=== PATIENT | female | born 1985 | race Caucasian/White ===

== ENCOUNTER 2018-04-07 19:42 | Observation (INO) ==
--- NOTE | 2018-04-07 19:52 | Emergency Department Note ---
Disposition Clinical Impression: Seizure Disposition: Admitted As Inpatient Condition: Good Referrals: Khris Miller MD [Primary Care Provider] - Forms: ED Satisfaction Letter General Adult HPI - General Chief complaint: ED Seizure Stated complaint: seizure, unresponsive Time Seen by Provider: 04/07/18 19:51 Source: patient Mode of arrival: private vehicle Limitations: altered mental status Nursing Notes Reviewed: Yes Vital Signs Reviewed: Yes - History of Present Illness HPI Narrative: Patient presents to the emergency department via private vehicle. Was not feeling well at work. Started to have seizure-like activity in the car. Was loaded onto the stretcher and brought to the emergency department. Patient was not responding to painful stimulus. Patient was not having active tonic-clonic movements. Patient did have eye fluttering and her pupils were equal and reactive. The patient vital signs were obtained and stable. Patient then began to wake up. The patient does have a cardiac history of rapid heart rate but no other specifics are able to be given by mother. She has a history of seizures but unknown what medications she takes other than Lyrica. The patient does have a history of opiate use. Patient will continue to be monitored. Baseline chemistries will be obtained. We will consult neurology. - Related Data Home Medications Medication Instructions Recorded Confirmed DULoxetine [Cymbalta] 20 mg PO DAILY 04/07/18 04/07/18 Diltiazem CD (24hr) [Cardizem CD] 120 mg PO DAILY 04/07/18 04/07/18 Estrogens, Conjugated [Premarin] 0.45 mg PO DAILY 04/07/18 04/07/18 Ibuprofen [Motrin] 800 mg PO Q8HR 04/07/18 04/07/18 Lisinopril [Zestril] 10 mg PO DAILY 04/07/18 04/07/18 Medroxyprogesterone Acetate 50 mg PO DAILY 04/07/18 04/07/18 [Provera] Pregabalin [Lyrica] 100 mg PO BID 04/07/18 04/07/18 Allergies Allergy/AdvReac Type Severity Reaction Status Date / Time levofloxacin [From Levaquin] Allergy Hives Verified 03/29/18 21:44 methocarbamol Allergy Difficulty Verified 03/29/18 21:44 Breathing tramadol Allergy Seizure Verified 03/29/18 21:44 Limitations: ROS unobtainable due to patients medical condition Past Medical History - Past Medical History Medical history: Reports: fibromyalgia, hypertension, seizures, other Psychiatric history: Reports: 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 - Social History Smoking Status: Current every day smoker Smokeless Tobacco Status: No Alcohol use: Reports: rarely Drug use: Reports: none Physical Exam General: Nonresponsive Head: Normocephalic Atraumatic Eyes: PERRL, eyes fluttering upwards ENT: Airway patent, no stridor Neck: supple, no meningismus Chest: Lungs clear to auscultation bilateral Cardiac: Regular rate and rhythm, no murmurs, rubs or gallops Abdomen: soft, nontender, nondistended; no guarding, rebound, or tenderness to percussion Musculoskeletal: Calves symmetric, nontender, no palpable cord Skin: No rash, normal skin tone; no evidence of track lr Neuro: No tonic-clonic activity Course - Reevaluation(s) Reevaluation #1: Patient started to wake and did respond to her mother's voice. She was able to mouth her name. Patient then began having arching of her neck as well as eye fluttering again. Patient was given 1 mg of Ativan with improvement. Patient again the able to speak softly. Patient did awaken one point told the nurses were to get the best IV. - Consultations Consultation #1: Discussed with Dr. Love after viewing her most previous progress note. He has concern for pseudoseizures. Recommends ammonia capsule and observation with repeat callback about patients clinical status. Consultation #2: Discussed with Dr. Love. Patient is awakening but is still drowsy. Possible Ativan versus other. Patient has not had any further seizures. At this point the patient will be placed on Depakote 800 mg IV and then received 500 twice a day. They will consult tomorrow. Consultation #3: Discussed with hospitalist. Accepted for admission. Vital Signs Temperature 98.7 F 04/07/18 19:43 Pulse Rate 76 04/07/18 19:43 Respiratory Rate 12 04/07/18 19:43 Blood Pressure 152/92 04/07/18 19:43 O2 Sat by Pulse Oximetry 100 04/07/18 19:43 Temperature 98.7 F 04/07/18 19:43 Pulse Rate 74 04/07/18 22:01 Respiratory Rate 16 04/07/18 22:01 Blood Pressure 112/70 04/07/18 22:01 O2 Sat by Pulse Oximetry 98 04/07/18 22:01 Oxygen Delivery Oxygen Delivery Room Air Medical Decision Making - Medical Records Medical records reviewed: Yes I reviewed the patient's medical records. - Lab Data Lab results reviewed: Yes I reviewed the patient's lab results. Result diagrams: 04/07/18 19:48 04/07/18 19:48 Lab Results 04/07/18 04/07/18 04/07/18 Range/Units 19:48 19:48 19:48 WBC 10.8 (4.3-11.1) K/mcL RBC 4.44 (3.82-4.97) M/mcL Hgb 13.5 (11.5-15.4) g/dL Hct 40.2 (35.3-44.9) % MCV 90.5 (83.0-100.0) fL MCH 30.4 (28.0-33.3) pg MCHC 33.6 (31.6-35.5) g/dL RDW 11.9 (11.5-14.5) % Plt Count 208 (140-400) K/mcL MPV 10.8 (9.4-12.4) fL Immature Gran % 0.6 (0-4) % Seg Neutrophils % 78.2 % Lymphocytes % 14.0 % Monocytes % 5.9 % Eosinophils % 0.9 % Basophils % 0.4 % Neutrophils # 8.4 (1.6-8.9) K/mcL Lymphocytes # 1.5 (0.6-4.6) K/mcL Monocytes # 0.6 (0.0-1.3) K/mcL Eosinophils # 0.1 (0.0-0.6) K/mcL Basophils # 0.0 (0.0-0.2) K/mcL Sodium 140 (136-145) mEq/L Potassium 3.7 (3.5-5.1) mEq/L Chloride 112 H (98-107) mEq/L Carbon Dioxide 23 (23-29) mEq/L BUN 9 (6-20) mg/dL Creatinine 0.81 (0.60-1.20) mg/dL Est GFR ( Amer) > 60 (> 60) Est GFR (Non-Af Amer) > 60 (> 60) BUN/Creatinine Ratio 11 (6-26) Glucose 153 H (70-105) mg/dL POC Glucose (70-99) mg/dL Calculated Osmolality 292 (280-300) Calcium 7.9 L (8.6-10.3) mg/dL Phosphorus 3.4 (2.7-4.5) mg/dL Magnesium 1.9 (1.6-2.6) mg/dL Total Bilirubin 0.3 (0.3-1.0) mg/dL AST 23 (13-39) Units/L ALT 34 (7-52) Units/L Alkaline Phosphatase 60 (34-104) Units/L Serum Total Protein 5.6 L (6.4-8.9) g/dL Albumin 4.0 (3.5-5.7) g/dL Globulin 1.6 L (2.4-3.5) g/dL Albumin/Globulin Ratio 2.5 H (1.1-2.2) Serum , Qual (Negative) Urine Color (Yellow) Urine Clarity (Clear) Urine pH (5.0-8.0) pH Units Ur Specific [place] (1.010-1.025) Urine Protein (Neg-Trace) mg/dL Urine Glucose (UA) (Normal) mg/dL Urine Ketones (Negative) mg/dL Urine Blood (Negative) Urine Nitrite (Negative) Urine Bilirubin (Negative) Urine Urobilinogen (Normal) mg/dL Ur Leukocyte Esterase (Negative) Urine Opiates Screen (Abmcjq=506) ng/mL Ur Barbiturates Screen (Xqrjmc=887) ng/mL Valproic Acid < 4 L (50-100) mcg/mL Ur Phencyclidine Scrn (Cutoff=25) ng/mL Ur Amphetamines Screen (Iururn=9337) ng/mL U Benzodiazepines Scrn (Epmbxz=202) ng/mL Urine Cocaine Screen (Cutoff= 300) ng/mL U Marijuana (THC) Screen (Cutoff = 50) ng/mL 04/07/18 04/07/18 04/07/18 Range/Units 20:20 20:24 21:32 WBC (4.3-11.1) K/mcL RBC (3.82-4.97) M/mcL Hgb (11.5-15.4) g/dL Hct (35.3-44.9) % MCV (83.0-100.0) fL MCH (28.0-33.3) pg MCHC (31.6-35.5) g/dL RDW (11.5-14.5) % Plt Count (140-400) K/mcL MPV (9.4-12.4) fL Immature Gran % (0-4) % Seg Neutrophils % % Lymphocytes % % Monocytes % % Eosinophils % % Basophils % % Neutrophils # (1.6-8.9) K/mcL Lymphocytes # (0.6-4.6) K/mcL Monocytes # (0.0-1.3) K/mcL Eosinophils # (0.0-0.6) K/mcL Basophils # (0.0-0.2) K/mcL Sodium (136-145) mEq/L Potassium (3.5-5.1) mEq/L Chloride (98-107) mEq/L Carbon Dioxide (23-29) mEq/L BUN (6-20) mg/dL Creatinine (0.60-1.20) mg/dL Est GFR ( Amer) (> 60) Est GFR (Non-Af Amer) (> 60) BUN/Creatinine Ratio (6-26) Glucose (70-105) mg/dL POC Glucose 168 H (70-99) mg/dL Calculated Osmolality (280-300) Calcium (8.6-10.3) mg/dL Phosphorus (2.7-4.5) mg/dL Magnesium (1.6-2.6) mg/dL Total Bilirubin (0.3-1.0) mg/dL AST (13-39) Units/L ALT (7-52) Units/L Alkaline Phosphatase (34-104) Units/L Serum Total Protein (6.4-8.9) g/dL Albumin (3.5-5.7) g/dL Globulin (2.4-3.5) g/dL Albumin/Globulin Ratio (1.1-2.2) Serum , Qual Negative (Negative) Urine Color Yellow (Yellow) Urine Clarity Clear (Clear) Urine pH 6.5 (5.0-8.0) pH Units Ur Specific [place] 1.015 (1.010-1.025) Urine Protein Negative (Neg-Trace) mg/dL Urine Glucose (UA) Normal (Normal) mg/dL Urine Ketones Negative (Negative) mg/dL Urine Blood Negative (Negative) Urine Nitrite Negative (Negative) Urine Bilirubin Negative (Negative) Urine Urobilinogen Normal (Normal) mg/dL Ur Leukocyte Esterase Negative (Negative) Urine Opiates Screen (Sqxweq=712) ng/mL Ur Barbiturates Screen (Mxyfat=244) ng/mL Valproic Acid (50-100) mcg/mL Ur Phencyclidine Scrn (Cutoff=25) ng/mL Ur Amphetamines Screen (Hgrxnq=7786) ng/mL U Benzodiazepines Scrn (Vuimuo=690) ng/mL Urine Cocaine Screen (Cutoff= 300) ng/mL U Marijuana (THC) Screen (Cutoff = 50) ng/mL 04/07/18 Range/Units 21:32 WBC (4.3-11.1) K/mcL RBC (3.82-4.97) M/mcL Hgb (11.5-15.4) g/dL Hct (35.3-44.9) % MCV (83.0-100.0) fL MCH (28.0-33.3) pg MCHC (31.6-35.5) g/dL RDW (11.5-14.5) % Plt Count (140-400) K/mcL MPV (9.4-12.4) fL Immature Gran % (0-4) % Seg Neutrophils % % Lymphocytes % % Monocytes % % Eosinophils % % Basophils % % Neutrophils # (1.6-8.9) K/mcL Lymphocytes # (0.6-4.6) K/mcL Monocytes # (0.0-1.3) K/mcL Eosinophils # (0.0-0.6) K/mcL Basophils # (0.0-0.2) K/mcL Sodium (136-145) mEq/L Potassium (3.5-5.1) mEq/L Chloride (98-107) mEq/L Carbon Dioxide (23-29) mEq/L BUN (6-20) mg/dL Creatinine (0.60-1.20) mg/dL Est GFR ( Amer) (> 60) Est GFR (Non-Af Amer) (> 60) BUN/Creatinine Ratio (6-26) Glucose (70-105) mg/dL POC Glucose (70-99) mg/dL Calculated Osmolality (280-300) Calcium (8.6-10.3) mg/dL Phosphorus (2.7-4.5) mg/dL Magnesium (1.6-2.6) mg/dL Total Bilirubin (0.3-1.0) mg/dL AST (13-39) Units/L ALT (7-52) Units/L Alkaline Phosphatase (34-104) Units/L Serum Total Protein (6.4-8.9) g/dL Albumin (3.5-5.7) g/dL Globulin (2.4-3.5) g/dL Albumin/Globulin Ratio (1.1-2.2) Serum , Qual (Negative) Urine Color (Yellow) Urine Clarity (Clear) Urine pH (5.0-8.0) pH Units Ur Specific [place] (1.010-1.025) Urine Protein (Neg-Trace) mg/dL Urine Glucose (UA) (Normal) mg/dL Urine Ketones (Negative) mg/dL Urine Blood (Negative) Urine Nitrite (Negative) Urine Bilirubin (Negative) Urine Urobilinogen (Normal) mg/dL Ur Leukocyte Esterase (Negative) Urine Opiates Screen Negative (Uumxjh=554) ng/mL Ur Barbiturates Screen Negative (Ajkrce=338) ng/mL Valproic Acid (50-100) mcg/mL Ur Phencyclidine Scrn Negative (Cutoff=25) ng/mL Ur Amphetamines Screen Negative (Floyni=0636) ng/mL U Benzodiazepines Scrn Negative (Pnlsle=706) ng/mL Urine Cocaine Screen Negative (Cutoff= 300) ng/mL U Marijuana (THC) Screen Negative (Cutoff = 50) ng/mL - Radiology Data Radiology results reviewed: Yes I reviewed the patient's radiology results. - EKG Data EKG #1 EKG attestation: Yes I reviewed and interpreted this EKG. EKG results narrative: EKG shows sinus rhythm with ventricular rate of 75. HI interval 180. QRS 105. QTC 431. No significant ST elevations or depressions. No previous EKG for comparison.
[2018-04-07] MEDS ORDERED: 0.9 % Sodium Chloride 1,000 ML IVC ONE (19:54)
[2018-04-07] MEDS ORDERED: *HR* LORazepam 2 MG/ML VIAL ONE (19:58)
[2018-04-07] MEDS ORDERED: *HR* LORazepam 2 MG/ML VIAL IVP ONE (20:06)
[2018-04-07 20:12] LABS: Basophils % 0.4 %; Eosinophils # 0.1 K/mcL (0.0-0.6); Eosinophils % 0.9 %; Hematocrit 40.2 % (35.3-44.9); Hemoglobin 13.5 g/dL (11.5-15.4); Immature Granulocytes % 0.6 % (0-4); Lymphocytes # 1.5 K/mcL (0.6-4.6); Mean Corpuscular HGB Conc 33.6 g/dL (31.6-35.5); Mean Corpuscular Hemoglobin 30.4 pg (28.0-33.3); Mean Corpuscular Volume 90.5 fL (83.0-100.0); Mean Platelet Volume 10.8 fL (9.4-12.4); Monocytes # 0.6 K/mcL (0.0-1.3); Monocytes % 5.9 %; Neutrophils # 8.4 K/mcL (1.6-8.9); Platelet Count 208 K/mcL (140-400); Red Blood Count 4.44 M/mcL (3.82-4.97); Red Cell Distribution Width 11.9 % (11.5-14.5); Segmented Neutrophils % 78.2 %
[2018-04-07] MEDS ORDERED: Ammonia Inhalant AMPUL IH ONE (20:14)
[2018-04-07 20:37] LABS: Alanine Aminotransferase 34 Units/L (7-52); Albumin/Globulin Ratio 2.5 (1.1-2.2); Alkaline Phosphatase 60 Units/L (34-104); Aspartate Amino Transferase 23 Units/L (13-39); BUN/Creatinine Ratio 11 (6-26); Bilirubin,Total 0.3 mg/dL (0.3-1.0); Blood Urea Nitrogen 9 mg/dL (6-20); Calcium 7.9 mg/dL (8.6-10.3); Carbon Dioxide 23 mEq/L (23-29); Chloride 112 mEq/L (98-107); Globulin 1.6 g/dL (2.4-3.5); Glucose 153 mg/dL (70-105); Magnesium 1.9 mg/dL (1.6-2.6); Osmolality,Calculated 292 (280-300); Phosphorous 3.4 mg/dL (2.7-4.5); Potassium 3.7 mEq/L (3.5-5.1); Sodium 140 mEq/L (136-145); Total Protein 5.6 g/dL (6.4-8.9); eGFR For African Americans > 60 (> 60); eGFR For Non-African Americans > 60 (> 60)
[2018-04-07] MEDS ORDERED: Valproic Acid INJ 800 MG in 0.9 % Sodium Chloride 100 ML IVPB ONE (21:22)
[2018-04-07 21:54] LABS: Bilirubin,Urine Negative (Negative); Blood,Urine Negative (Negative); Clarity,Urine Clear (Clear); Color,Urine Yellow (Yellow); Glucose,Urine (UA) Normal (Normal); Ketones,Urine Negative (Negative); Leukocyte Esterase,Urine Negative (Negative); Nitrite,Urine Negative (Negative); PH,Urine 6.5 pH Units (5.0-8.0); Protein,Urine Negative (Neg-Trace); Specific Gravity,Urine 1.015 (1.010-1.025); Urobilinogen,Urine Normal (Normal)
[2018-04-07 22:03] LABS: Amphetamine Screen,Urine Negative ng/mL (Cutoff=1000); Barbiturate Screen,Urine Negative ng/mL (Cutoff=200); Benzodiazepines Screen,Urine Negative ng/mL (Cutoff=200); Cannabinoid Screen,Urine Negative ng/mL (Cutoff = 50); Cocaine Screen,Urine Negative ng/mL (Cutoff= 300); Opiate Screen,Urine Negative ng/mL (Cutoff=300); Phencyclidine Screen,Urine Negative ng/mL (Cutoff=25)
--- NOTE | 2018-04-07 22:06 | Emergency Department Note ---
Disposition Clinical Impression: Seizure Disposition: Admitted As Inpatient Condition: Good General Adult HPI - General Chief complaint: ED Seizure Stated complaint: seizure, unresponsive Time Seen by Provider: 04/07/18 19:51 Source: patient Mode of arrival: private vehicle Limitations: altered mental status Nursing Notes Reviewed: Yes Vital Signs Reviewed: Yes - History of Present Illness Pain Scale: 0 - Related Data Home Medications Medication Instructions Recorded Confirmed DULoxetine [Cymbalta] 20 mg PO DAILY 04/07/18 04/07/18 Diltiazem CD (24hr) [Cardizem CD] 120 mg PO DAILY 04/07/18 04/07/18 Estrogens, Conjugated [Premarin] 0.45 mg PO DAILY 04/07/18 04/07/18 Ibuprofen [Motrin] 800 mg PO Q8HR 04/07/18 04/07/18 Lisinopril [Zestril] 10 mg PO DAILY 04/07/18 04/07/18 Medroxyprogesterone Acetate 50 mg PO DAILY 04/07/18 04/07/18 [Provera] Pregabalin [Lyrica] 100 mg PO BID 04/07/18 04/07/18 Allergies Allergy/AdvReac Type Severity Reaction Status Date / Time levofloxacin [From Levaquin] Allergy Hives Verified 03/29/18 21:44 methocarbamol Allergy Difficulty Verified 03/29/18 21:44 Breathing tramadol Allergy Seizure Verified 03/29/18 21:44 Past Medical History - Past Medical History Medical history: Reports: fibromyalgia, hypertension, seizures, other 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 - Social History Smoking Status: Current every day smoker Smokeless Tobacco Status: No Alcohol use: Reports: rarely Drug use: Reports: none Physical Exam - General Limitations: altered mental status General appearance: lethargic Course Vital Signs Temperature 98.7 F 04/07/18 19:43 Pulse Rate 76 04/07/18 19:43 Respiratory Rate 12 04/07/18 19:43 Blood Pressure 152/92 04/07/18 19:43 O2 Sat by Pulse Oximetry 100 04/07/18 19:43 Temperature 98.5 F 04/07/18 23:47 Pulse Rate 72 04/07/18 23:47 Respiratory Rate 16 04/07/18 23:47 Blood Pressure 109/75 04/07/18 23:47 O2 Sat by Pulse Oximetry 97 04/07/18 23:47 Oxygen Delivery Oxygen Delivery Room Air Medical Decision Making - Lab Data Result diagrams: 04/07/18 19:48 04/07/18 19:48 Lab Results 04/07/18 04/07/18 04/07/18 Range/Units 19:48 19:48 19:48 WBC 10.8 (4.3-11.1) K/mcL RBC 4.44 (3.82-4.97) M/mcL Hgb 13.5 (11.5-15.4) g/dL Hct 40.2 (35.3-44.9) % MCV 90.5 (83.0-100.0) fL MCH 30.4 (28.0-33.3) pg MCHC 33.6 (31.6-35.5) g/dL RDW 11.9 (11.5-14.5) % Plt Count 208 (140-400) K/mcL MPV 10.8 (9.4-12.4) fL Immature Gran % 0.6 (0-4) % Seg Neutrophils % 78.2 % Lymphocytes % 14.0 % Monocytes % 5.9 % Eosinophils % 0.9 % Basophils % 0.4 % Neutrophils # 8.4 (1.6-8.9) K/mcL Lymphocytes # 1.5 (0.6-4.6) K/mcL Monocytes # 0.6 (0.0-1.3) K/mcL Eosinophils # 0.1 (0.0-0.6) K/mcL Basophils # 0.0 (0.0-0.2) K/mcL Sodium 140 (136-145) mEq/L Potassium 3.7 (3.5-5.1) mEq/L Chloride 112 H (98-107) mEq/L Carbon Dioxide 23 (23-29) mEq/L BUN 9 (6-20) mg/dL Creatinine 0.81 (0.60-1.20) mg/dL Est GFR ( Amer) > 60 (> 60) Est GFR (Non-Af Amer) > 60 (> 60) BUN/Creatinine Ratio 11 (6-26) Glucose 153 H (70-105) mg/dL POC Glucose (70-99) mg/dL Calculated Osmolality 292 (280-300) Calcium 7.9 L (8.6-10.3) mg/dL Phosphorus 3.4 (2.7-4.5) mg/dL Magnesium 1.9 (1.6-2.6) mg/dL Total Bilirubin 0.3 (0.3-1.0) mg/dL AST 23 (13-39) Units/L ALT 34 (7-52) Units/L Alkaline Phosphatase 60 (34-104) Units/L Serum Total Protein 5.6 L (6.4-8.9) g/dL Albumin 4.0 (3.5-5.7) g/dL Globulin 1.6 L (2.4-3.5) g/dL Albumin/Globulin Ratio 2.5 H (1.1-2.2) Serum , Qual (Negative) Urine Color (Yellow) Urine Clarity (Clear) Urine pH (5.0-8.0) pH Units Ur Specific [place] (1.010-1.025) Urine Protein (Neg-Trace) mg/dL Urine Glucose (UA) (Normal) mg/dL Urine Ketones (Negative) mg/dL Urine Blood (Negative) Urine Nitrite (Negative) Urine Bilirubin (Negative) Urine Urobilinogen (Normal) mg/dL Ur Leukocyte Esterase (Negative) Urine Opiates Screen (Hwudtb=250) ng/mL Ur Barbiturates Screen (Iuahyu=721) ng/mL Valproic Acid < 4 L (50-100) mcg/mL Ur Phencyclidine Scrn (Cutoff=25) ng/mL Ur Amphetamines Screen (Zutvkj=7587) ng/mL U Benzodiazepines Scrn (Nonkou=318) ng/mL Urine Cocaine Screen (Cutoff= 300) ng/mL U Marijuana (THC) Screen (Cutoff = 50) ng/mL 04/07/18 04/07/18 04/07/18 Range/Units 20:20 20:24 21:32 WBC (4.3-11.1) K/mcL RBC (3.82-4.97) M/mcL Hgb (11.5-15.4) g/dL Hct (35.3-44.9) % MCV (83.0-100.0) fL MCH (28.0-33.3) pg MCHC (31.6-35.5) g/dL RDW (11.5-14.5) % Plt Count (140-400) K/mcL MPV (9.4-12.4) fL Immature Gran % (0-4) % Seg Neutrophils % % Lymphocytes % % Monocytes % % Eosinophils % % Basophils % % Neutrophils # (1.6-8.9) K/mcL Lymphocytes # (0.6-4.6) K/mcL Monocytes # (0.0-1.3) K/mcL Eosinophils # (0.0-0.6) K/mcL Basophils # (0.0-0.2) K/mcL Sodium (136-145) mEq/L Potassium (3.5-5.1) mEq/L Chloride (98-107) mEq/L Carbon Dioxide (23-29) mEq/L BUN (6-20) mg/dL Creatinine (0.60-1.20) mg/dL Est GFR ( Amer) (> 60) Est GFR (Non-Af Amer) (> 60) BUN/Creatinine Ratio (6-26) Glucose (70-105) mg/dL POC Glucose 168 H (70-99) mg/dL Calculated Osmolality (280-300) Calcium (8.6-10.3) mg/dL Phosphorus (2.7-4.5) mg/dL Magnesium (1.6-2.6) mg/dL Total Bilirubin (0.3-1.0) mg/dL AST (13-39) Units/L ALT (7-52) Units/L Alkaline Phosphatase (34-104) Units/L Serum Total Protein (6.4-8.9) g/dL Albumin (3.5-5.7) g/dL Globulin (2.4-3.5) g/dL Albumin/Globulin Ratio (1.1-2.2) Serum , Qual Negative (Negative) Urine Color Yellow (Yellow) Urine Clarity Clear (Clear) Urine pH 6.5 (5.0-8.0) pH Units Ur Specific [place] 1.015 (1.010-1.025) Urine Protein Negative (Neg-Trace) mg/dL Urine Glucose (UA) Normal (Normal) mg/dL Urine Ketones Negative (Negative) mg/dL Urine Blood Negative (Negative) Urine Nitrite Negative (Negative) Urine Bilirubin Negative (Negative) Urine Urobilinogen Normal (Normal) mg/dL Ur Leukocyte Esterase Negative (Negative) Urine Opiates Screen (Dfnuya=973) ng/mL Ur Barbiturates Screen (Defuix=097) ng/mL Valproic Acid (50-100) mcg/mL Ur Phencyclidine Scrn (Cutoff=25) ng/mL Ur Amphetamines Screen (Xojfel=6570) ng/mL U Benzodiazepines Scrn (Gskols=596) ng/mL Urine Cocaine Screen (Cutoff= 300) ng/mL U Marijuana (THC) Screen (Cutoff = 50) ng/mL 04/07/18 Range/Units 21:32 WBC (4.3-11.1) K/mcL RBC (3.82-4.97) M/mcL Hgb (11.5-15.4) g/dL Hct (35.3-44.9) % MCV (83.0-100.0) fL MCH (28.0-33.3) pg MCHC (31.6-35.5) g/dL RDW (11.5-14.5) % Plt Count (140-400) K/mcL MPV (9.4-12.4) fL Immature Gran % (0-4) % Seg Neutrophils % % Lymphocytes % % Monocytes % % Eosinophils % % Basophils % % Neutrophils # (1.6-8.9) K/mcL Lymphocytes # (0.6-4.6) K/mcL Monocytes # (0.0-1.3) K/mcL Eosinophils # (0.0-0.6) K/mcL Basophils # (0.0-0.2) K/mcL Sodium (136-145) mEq/L Potassium (3.5-5.1) mEq/L Chloride (98-107) mEq/L Carbon Dioxide (23-29) mEq/L BUN (6-20) mg/dL Creatinine (0.60-1.20) mg/dL Est GFR ( Amer) (> 60) Est GFR (Non-Af Amer) (> 60) BUN/Creatinine Ratio (6-26) Glucose (70-105) mg/dL POC Glucose (70-99) mg/dL Calculated Osmolality (280-300) Calcium (8.6-10.3) mg/dL Phosphorus (2.7-4.5) mg/dL Magnesium (1.6-2.6) mg/dL Total Bilirubin (0.3-1.0) mg/dL AST (13-39) Units/L ALT (7-52) Units/L Alkaline Phosphatase (34-104) Units/L Serum Total Protein (6.4-8.9) g/dL Albumin (3.5-5.7) g/dL Globulin (2.4-3.5) g/dL Albumin/Globulin Ratio (1.1-2.2) Serum , Qual (Negative) Urine Color (Yellow) Urine Clarity (Clear) Urine pH (5.0-8.0) pH Units Ur Specific [place] (1.010-1.025) Urine Protein (Neg-Trace) mg/dL Urine Glucose (UA) (Normal) mg/dL Urine Ketones (Negative) mg/dL Urine Blood (Negative) Urine Nitrite (Negative) Urine Bilirubin (Negative) Urine Urobilinogen (Normal) mg/dL Ur Leukocyte Esterase (Negative) Urine Opiates Screen Negative (Yhlfnq=032) ng/mL Ur Barbiturates Screen Negative (Ulucfa=392) ng/mL Valproic Acid (50-100) mcg/mL Ur Phencyclidine Scrn Negative (Cutoff=25) ng/mL Ur Amphetamines Screen Negative (Jzgfrt=6566) ng/mL U Benzodiazepines Scrn Negative (Zpmzjr=393) ng/mL Urine Cocaine Screen Negative (Cutoff= 300) ng/mL U Marijuana (THC) Screen Negative (Cutoff = 50) ng/mL Critical Care Time Critical Care Time: Yes Total Critical Care Time: 35 Attestation: Critical care performed: Time is exclusive of separately billable procedures. Time includes: direct patient care, patient reassessment, coordination of patient care, interpretation of data (laboratory data, radiology data, and respiratory data), review of patient's medical records, medical consultation and documentation of patient care. Procedures included in critical care time: Procedures excluded from critical care time: Attestation Statement - Attestation Attestation: I, Chris Campbell MD, personally evaluated this patient and discussed their management with the resident physician. I reviewed the resident's note and agree with the documented findings, medical decision making, and plan of care. 32-year-old female presents to the emergency department for seizure activity. Patient has a history of seizures and has been on multiple medications in the past. Mother reports that they seem to be controlled on Depakote but then they occur off Depakote and she is currently only on Lyrica. She states that the seizures have been getting progressively worse. In and picked her up from work this evening because she was not feeling well and was not acting right. Mother reports that this is how she acts before she has her seizures. While mother was bringing her to the emergency department she had a seizure in the car. Nursing staff states that they removed her from the car and she was having tonic -clonic seizure activity initially and was unresponsive. On arrival to room 6 patient was unresponsive but not exhibiting any seizure activity. She was breathing spontaneously with good vital signs. She did have some fluttering of the eyes. Pupils equal and reactive. No track lr. Patient appears to be postictal. On examination patient is a well-developed thin female in no acute distress but appears postictal and is essentially unresponsive. Vital signs normal. There is no cyanosis or diaphoresis. Breath sounds are clear and equal bilaterally. Heart regular rate and rhythm. No tachycardia. Abdomen is soft with normal bowel sounds. Labs reviewed. Dr. Medina discussed the case with the neurologist on-call, Dr. Love, who is familiar with the patient. He recommended loading the patient with IV Depakote and admission by the hospitalist and will consult on the patient tomorrow in the hospital. The hospitalist, Dr. Boyle, was consulted and accepted admission of the patient.
[2018-04-08] MEDS ORDERED: Naloxone 0.4 MG/ML INJ IVP PRN (00:01)
[2018-04-08] MEDS ORDERED: *HR* LORazepam 2 MG/ML VIAL IVP PRN (00:06)
--- NOTE | 2018-04-08 00:17 | Internal Med History&Physical ---
Date of Encounter: 04/08/18 Time of Encounter: 00:08 Internal Medicine - H&P: HPI Chief complaint: seziure Admitted From: Emergency Dept Plans for Post Hospital Care: Home History of present illness: Ms. Pepe is a 32 year old female who presents to the ER tonight with complaint of breakthrough seizures and postictal state. Workup in the ER included routine labs and phone consultation with Dr. Love. Patient was loaded on Depakote and admitted to hospitalist service with neurology consultation. I discussed with the ER staff and accepted the admission. ER ordered a head CT scan of the head which is still pending at this time. Upon my assessment of the patient, patient is somnolent and appears to be postictal. Patient is unable to provide any history whatsoever. Mother is at bedside and provides most of the history. Patient reportedly has a history of seizure disorder since age of 16 years of age. Patient's mother was called to her place of employment for concerns of patient "not feeling well". Upon mother 's arrival to the patient's employer, she suddenly developed seizures and then became postictal. Then, en route to the hospital, mother reports she has had 2 or 3 more seizures and has been postictal since then. She received some Ativan in the ER and Depakote load. She has had medication changes in the past and most recently has been on Lyrica. Mother states that her seizures have been worse the last several months while on Lyrica. No further changes in her health status have been present according to mother. Of note, I reviewed some old records and note that she does have a history of opiate use and abuse in the past. I did not question mother as I'm not sure what she knows about the patient's prior history. There have been reports in the past that she might have had pseudoseizures. Nonetheless, we will keep her on Depakote as requested by Dr. Love and continue seizure precautions. I will order an EEG in the morning and head MRI. According to mother, there have been no reports of fevers, chills, headache, neck pain, back pain, vomiting, or diarrhea. Past Med Surg Social Fam HX - Past Medical History Source: old records reviewed, obtained from family Medical history: fibromyalgia, hypertension, seizures, other Psychiatric history: anxiety - Past Surgical History Surgical History: no surgical history - Social History Smoking Status: Current every day smoker Smokeless Tobacco Status: No Alcohol use: rarely Drug use: none Occupational status: employed Current living situation: Home - Independent Activity Level: Independent ambulation Recent Out of Country Travel Within the Last 8 Weeks: No - Family History Mother Living Status: Still Living Hx Family Neurologic Disorders: No - Additional Family History Additional family history: No FH of seizures Internal Medicine - H&P: Meds DULoxetine [Cymbalta] 20 mg PO DAILY 04/07/18 [History] Diltiazem CD (24hr) [Cardizem CD] 120 mg PO DAILY 04/07/18 [History] Estrogens, Conjugated [Premarin] 0.45 mg PO DAILY 04/07/18 [History] Ibuprofen [Motrin] 800 mg PO Q8HR 04/07/18 [History] Lisinopril [Zestril] 10 mg PO DAILY 04/07/18 [History] Medroxyprogesterone Acetate [Provera] 50 mg PO DAILY 04/07/18 [History] Pregabalin [Lyrica] 100 mg PO BID 04/07/18 [History] 3 Allergy/AdvReac Type Severity Reaction Status Date / Time levofloxacin [From Levaquin] Allergy Hives Verified 03/29/18 21:44 methocarbamol Allergy Difficulty Verified 03/29/18 21:44 Breathing tramadol Allergy Seizure Verified 03/29/18 21:44 ROS unobtainable: due to mental status (POST-ICTAL) Review of systems: as per [facility] per mother; otherwise unobtainable - Constitutional Vitals: Temp Pulse Resp BP Pulse Ox 98.5 F 72 16 109/75 97 04/07/18 23:47 04/07/18 23:47 04/07/18 23:47 04/07/18 23:47 04/07/18 23:47 Exam: somnolent; arousable; post-ictal - Head Head exam: Present: atraumatic, normal inspection - Eye Eye exam: Present: EOMI, normal appearance, PERRL. Absent: scleral icterus Pupils: Present: normal accommodation - ENT ENT exam: Present: mucous membranes dry, normal exam - Neck Neck exam general surgery: Present: full ROM, supple. Absent: tenderness, nuchal rigidity, thyromegaly - Respiratory Respiratory exam: Present: CTAB. Absent: chest wall tenderness, rales, respiratory distress, rhonchi, wheezes - Cardiovascular Cardiovascular exam: Present: RRR, +S1, +S2, systolic murmur (grade 1). Absent : diastolic murmur - GI/Abdominal GI/Abdominal exam: Present: normal bowel sounds, soft. Absent: guarding, hepatomegaly, mass, rebound, splenomegaly, tenderness - Extremities Exam Extremities exam: Present: full ROM, normal capillary refill, warm, radial pulses palpable and symmetrical. Absent: calf tenderness, joint swelling, pedal edema, tenderness - Back Exam Back exam: Absent: CVA tenderness (L), CVA tenderness (R) - Neurological Exam Neurological exam: Present: no focal deficits Additional comments: somnolent; responds to verbal and painful stimuli; moves four extremities; unable to fully assess due to somnolence - Psychiatric Additional comments: somnolent - Skin Skin exam: Present: dry, warm. Absent: rash Internal Med - H&P Results - Labs CBC & Chem 7: 04/07/18 19:48 04/07/18 19:48 - Assessment and plan (1) Seizure Current Visit: Yes Status: Acute Assessment and plan: 1. Will place in seizure precautions. 2. Patient received Depakote load in ER; start Depakote 500 mg PO BID in the morning. 3. Consult neurology. 4. I ordered EEG and MR Brain. 5. Urine drug screen negative. (2) Hypertension Current Visit: Yes Status: Chronic Assessment and plan: 1. Hold BP meds as BP is borderline low right now. 2. Monitor BP closely and resume/adjust home meds as necessary. Qualifiers: Hypertension type: essential hypertension Qualified Code(s): I10 - Essential (primary) hypertension (3) DVT prophylaxis Current Visit: Yes Status: Acute Assessment and plan: 1. Heparin SQ.
[2018-04-08] MEDS: 0.9 % Sodium Chloride w KCl 20 MEQ/1,000 ML MLS IVC SCH ×2 (00:42→15:12)
[2018-04-08] MEDS: *HR* Heparin 5,000 UNIT/ML VIAL SQ SCH ×2 (06:08→17:26)
[2018-04-08 06:10] LABS: Basophils % 0.4 %; Eosinophils # 0.2 K/mcL (0.0-0.6); Eosinophils % 2.8 %; Hematocrit 35.4 % (35.3-44.9); Hemoglobin 12.2 g/dL (11.5-15.4); Immature Granulocytes % 0.7 % (0-4); Immature Platelets 3.7 % (1.1-6.1); Lymphocytes # 2.5 K/mcL (0.6-4.6); Lymphocytes % 29.7 %; Mean Corpuscular HGB Conc 34.5 g/dL (31.6-35.5); Mean Corpuscular Hemoglobin 31.4 pg (28.0-33.3); Mean Corpuscular Volume 91.2 fL (83.0-100.0); Mean Platelet Volume 11.2 fL (9.4-12.4); Monocytes # 0.6 K/mcL (0.0-1.3); Monocytes % 6.6 %; Nucleated Red Blood Cells 0.6 /100 WBC (0); Platelet Count 194 K/mcL (140-400); Red Blood Count 3.88 M/mcL (3.82-4.97); Red Cell Distribution Width 11.9 % (11.5-14.5); Segmented Neutrophils % 59.8 %
[2018-04-08 06:21] LABS: Alanine Aminotransferase 30 Units/L (7-52); Albumin 3.4 g/dL (3.5-5.7); Alkaline Phosphatase 51 Units/L (34-104); Aspartate Amino Transferase 19 Units/L (13-39); BUN/Creatinine Ratio 10 (6-26); Bilirubin,Total 0.2 mg/dL (0.3-1.0); Blood Urea Nitrogen 7 mg/dL (6-20); Calcium 8.2 mg/dL (8.6-10.3); Carbon Dioxide 20 mEq/L (23-29); Chloride 113 mEq/L (98-107); Globulin 1.7 g/dL (2.4-3.5); Glucose 79 mg/dL (70-105); Magnesium 1.9 mg/dL (1.6-2.6); Osmolality,Calculated 291 (280-300); Potassium 4.3 mEq/L (3.5-5.1); Sodium 142 mEq/L (136-145); Total Protein 5.1 g/dL (6.4-8.9); eGFR For African Americans > 60 (> 60); eGFR For Non-African Americans > 60 (> 60)
[2018-04-08 06:42] LABS: Prothrombin Time 11.1 Seconds (9.4-12.1)
[2018-04-08] MEDS: Divalproex (12 HR) 500 MG TABLET PO SCH ×2 (09:17→21:14)
--- NOTE | 2018-04-08 10:39 | Neurology - Consult Note ---
<Bill Gonzalez - Last Filed: 04/08/18 10:27> Date of Encounter: 04/08/18 Time of Encounter: 09:30 Assessment and Plan (1) Partial symptomatic epilepsy with complex partial seizures, not intractable , without status epilepticus Current Visit: Yes Status: Chronic Since administration of IV Depakote, no seizures thus far. EEG completed this morning, pending read. Patient had MRI in October 2017, so a repeat is not necessary at this time. Anticipate discharge on Depakote. Patient can continue Lyrica for her fibromyalgia, and it may give better control of seizures than with depakote alone. History of Present Illness Chief complaint: Seizures HPI: Bindu Pepe is a 32 year old female with history of partial symptomatic epilepsy with complex partial seizures who follows with Dr. Love who presents with seizure-like activity. History is gathered from the patient and her mother. Mother received phone call from [employer] stating that patient "wasn't acting right". she states that her daughter looks drunk, had dilated eyes, and was in and out of being responsive. She states that these symptoms are compatible with other episodes just prior to her daughter having a seizure. On the way to the ER, the patient had convulsions and stopped responding to her mother. There was another episode just as they arrived, as well, but no seizure activity was noted when she was in the ER itself, though she did appear postictal. IV Depakote was administered. Patient seizures had previously been controlled on Depakote, but this medication was stopped when she was incarcerated. She she has also tried Keppra , which caused mood changes, and Dilantin, which caused vision changes. Patient has been taking Lyrica, and her dose was recently increased to 100 mg BID. She continues to have up to two seizures per week. Past Med Surg Social Fam HX - Past Medical History Medical history: fibromyalgia, hypertension, seizures, other Psychiatric history: other - Past Surgical History Surgical History: no surgical history - Social History Smoking Status: Current every day smoker Smokeless Tobacco Status: No Alcohol use: rarely Drug use: none - Family History Father Hx Family Cardiac Disorders: Yes Mother Living Status: Still Living Hx Family Neurologic Disorders: No Medications and Allergies DULoxetine [Cymbalta] 20 mg PO DAILY 04/07/18 [History] Diltiazem CD (24hr) [Cardizem CD] 120 mg PO DAILY 04/07/18 [History] Estrogens, Conjugated [Premarin] 0.45 mg PO DAILY 04/07/18 [History] Ibuprofen [Motrin] 800 mg PO Q8HR 04/07/18 [History] Lisinopril [Zestril] 10 mg PO DAILY 04/07/18 [History] Medroxyprogesterone Acetate [Provera] 50 mg PO DAILY 04/07/18 [History] Pregabalin [Lyrica] 100 mg PO BID 04/07/18 [History] Ondansetron HCl [Zofran] 4 mg PO Q8HR PRN 04/08/18 [History] 3 Allergy/AdvReac Type Severity Reaction Status Date / Time levofloxacin [From Levaquin] Allergy Hives Verified 03/29/18 21:44 methocarbamol Allergy Difficulty Verified 03/29/18 21:44 Breathing tramadol Allergy Seizure Verified 03/29/18 21:44 All Systems: The remainder of the systems were reviewed and are negative Review of Systems: 10 point review of systems completed and negative except as stated in HPI Physical Examination - Vital Signs Vital Signs: Initial Vital Signs Temp Pulse Resp BP Pulse Ox 98.7 F 76 12 152/92 100 04/07/18 19:43 04/07/18 19:43 04/07/18 19:43 04/07/18 19:43 04/07/18 19:43 - Exam Exam: CONSTITUTIONAL: Well-developed and well-nourished. Comfortable and in no acute distress. CARDIOVASCULAR: Regular rate and rhythm. +S1 and S2. CHEST: Normal work of breathing. NEURO: Mental Status: Alert and oriented x3. Follows commands and answers questions. Cranial Nerves: PERRL. EOMI. Visual mcwilliams intact. Symmetrical facial strength. Facial sensation intact. No dysarthria. Hearing intact. Soft palate elevates symmetrically. SCM and trapezius without weakness. Tongue protrudes in midline. Motor: Left - 5/5 in upper and lower extremities. R - 5/5 in upper and lower extremities. Sensation intact. Cerebellar function intact to [id number]. Results - Laboratory Findings CBC and BMP: 04/08/18 04:20 04/08/18 04:20 Abnormal lab findings: Abnormal lab results Nucleated RBCs/100 WBC 0.6 /100 WBC (0) H 05/10/18 04:20 APTT 25.0 Seconds (26.0-36.0) L 04/08/18 04:02 Chloride 113 mEq/L (98-107) H 04/08/18 04:20 Carbon Dioxide 20 mEq/L (23-29) L 04/08/18 04:20 Calcium 8.2 mg/dL (8.6-10.3) L 04/08/18 04:20 Total Bilirubin 0.2 mg/dL (0.3-1.0) L 04/08/18 04:20 Serum Total Protein 5.1 g/dL (6.4-8.9) L 04/08/18 04:20 Albumin 3.4 g/dL (3.5-5.7) L 04/08/18 04:20 Globulin 1.7 g/dL (2.4-3.5) L 04/08/18 04:20 Valproic Acid < 4 mcg/mL (50-100) L 04/07/18 19:48 Consult Discharge Plan - Plan Referrals: Khris Miller MD [Primary Care Provider] - 04/13/18 1:50 pm <Brissa Love I - Last Filed: 04/08/18 14:48> Date of Encounter: 04/08/18 Assessment and Plan (1) Partial symptomatic epilepsy with complex partial seizures, not intractable , without status epilepticus Current Visit: Yes Status: Chronic Pt was seen and examined, my medical decision was reviewed with the Resident Physician, I agree with the documented findings, disposition and treatment plas as described except to the extent set forth below Patient is known to me from previous office visit she did have an history of seizures but at the same time she also has multiple psychosocial issues underlying anxiety and has multiple seizures off-and-on especially when she is off incarceration. She had been on Dilantin in the past but apparently has very unusual side effect of vision changes from its it was discontinued later on she was started on Keppra but she is not able to tolerate that either. Now she admitted with these multiple seizures continued to be on Lyrica which she is also taking for fibromyalgia she is been loaded with Depakote so far she denies any reaction or side effect from the medication hopefully that may help her as a motor stabilizer as well I have suggested to continue 500 mg twice a day for now We will review the EEG She recently had an MRI of the brain as an outpatient that did not show any acute abnormality at the moment do not think that we need to repeat MRI of the brain as recent MRI was negative Check for any underlying metabolic infectious etiology that may be precipitating she should remain on seizure precautions and driving restrictions Brissa Love MD History of Present Illness HPI: Ms. Pepe is a 32 year old female All Systems: The remainder of the systems were reviewed and are negative Physical Examination - Vital Signs Vital Signs: Initial Vital Signs Temp Pulse Resp BP Pulse Ox 98.7 F 76 12 152/92 100 04/07/18 19:43 04/07/18 19:43 04/07/18 19:43 04/07/18 19:43 04/07/18 19:43 Results - Laboratory Findings CBC and BMP: 04/08/18 04:20 04/08/18 04:20 Abnormal lab findings: Abnormal lab results Nucleated RBCs/100 WBC 0.6 /100 WBC (0) H 04/08/18 04:20 APTT 25.0 Seconds (26.0-36.0) L 04/08/18 04:02 Chloride 113 mEq/L (98-107) H 04/08/18 04:20 Carbon Dioxide 20 mEq/L (23-29) L 04/08/18 04:20 Calcium 8.2 mg/dL (8.6-10.3) L 04/08/18 04:20 Total Bilirubin 0.2 mg/dL (0.3-1.0) L 04/08/18 04:20 Serum Total Protein 5.1 g/dL (6.4-8.9) L 04/08/18 04:20 Albumin 3.4 g/dL (3.5-5.7) L 04/08/18 04:20 Globulin 1.7 g/dL (2.4-3.5) L 04/08/18 04:20 Valproic Acid < 4 mcg/mL (50-100) L 04/07/18 19:48
--- NOTE | 2018-04-08 15:03 | Electrocardiograph Report ---
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
--- NOTE | 2018-04-08 15:20 | Electrocardiograph Report ---
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
--- NOTE | 2018-04-08 17:20 | Internal Med Progress Note ---
Date of Encounter: 04/08/18 Time of Encounter: 11:05 - Assessment and plan (1) Seizure Current Visit: Yes Status: Acute Assessment and plan: Per neurology note: Patient with witnessed seizures in the emergency department , in the car on the way to the emergency department. Patient had postictal. After arrival to the emergency department. Patient received loading dose of IV Depakote in the emergency department. Patient had previously been controlled on Depakote, but did not receive medication when she was incarcerated. Patient has had several other trials of medications and worse and successful on those. Patient has been taking Lyrica with a recent dosage increase and continues to have up to 2 seizures per week. Patient remains drowsy, difficult to arouse. 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 (2) Hypertension Current Visit: Yes Status: Chronic Assessment and plan: Blood pressure is well controlled. Blood pressure medication has been held due to borderline hypotension. Patient is drowsy and asleep. Continue to monitor vital signs per admission order Restart medications in response to blood pressures. Qualifiers: Hypertension type: essential hypertension Qualified Code(s): I10 - Essential (primary) hypertension (3) DVT prophylaxis Current Visit: Yes Status: Acute Assessment and plan: Heparin subcutaneous twice daily. - Time Spent With Patient Total time spent is greater than 50% in coordination of care (as documented) at patient's floor/unit and/or counseling patient: less than 15 minutes - Subjective Interval history: Patient was seen at bedtime 11:05 AM. Mother was at bedside. Patient was very drowsy, difficult to arouse. She denied headache, chest pain, abdominal pain. Patient did not answer other questions. Her physical exam was unremarkable. I went back later in the afternoon to reassess the patient, she was awake but remained drowsy. Mom was not at bedside to discuss neurology report. - Constitutional Vitals: Temp Pulse Resp BP Pulse Ox 98.2 F 66 16 109/74 99 04/08/18 15:22 04/08/18 15:22 04/08/18 15:22 04/08/18 15:22 04/08/18 15:22 General appearance: Present: cooperative, pleasant, no acute distress, answers questions appropriately - Head Head exam: Present: atraumatic, normal inspection, normocephalic - Eye Eye exam: Present: normal appearance, conjuntiva pink, sclera anicteric - Neck Neck exam general surgery: Present: supple, trachea midline. Absent: lymphadenopathy, tenderness - Respiratory Respiratory exam: Present: CTAB. Absent: accessory muscle use, chest wall tenderness, rales, respiratory distress, rhonchi, wheezes - Cardiovascular Cardiovascular exam: Present: RRR, +S1, +S2. Absent: diastolic murmur, gallop, rubs, systolic murmur - GI/Abdominal GI/Abdominal exam: Present: distended, normal bowel sounds, soft. Absent: hepatomegaly, tenderness - Extremities Exam Extremities exam: Present: normal capillary refill, normal inspection, warm, radial pulses palpable and symmetrical. Absent: calf tenderness, cyanotic, pedal edema, tenderness - Neurological Exam Neurological exam: Present: altered, no focal deficits. Absent: alert, facial droop, speech deficit - Skin Skin exam: Present: dry, intact, normal color, warm. Absent: rash Internal Medicine: Result - Labs CBC & Chem 7: 04/08/18 04:20 04/08/18 04:20 Labs: Short CBC 04/08/18 Range/Units 04:20 WBC 8.3 (4.3-11.1) K/mcL Hgb 12.2 (11.5-15.4) g/dL Hct 35.4 (35.3-44.9) % Plt Count 194 (140-400) K/mcL Neutrophils # 5.0 (1.6-8.9) K/mcL BMP 04/08/18 04:20 Sodium 142 Potassium 4.3 Chloride 113 H Carbon Dioxide 20 L BUN 7 Creatinine 0.73 Glucose 79 Calcium 8.2 L Liver Function 04/08/18 Range/Units 04:20 Total Bilirubin 0.2 L (0.3-1.0) mg/dL AST 19 (13-39) Units/L ALT 30 (7-52) Units/L Alkaline Phosphatase 51 (34-104) Units/L Albumin 3.4 L (3.5-5.7) g/dL - ABG Interpretation ABG results: PT/INR, D-dimer PT 11.1 Seconds (9.4-12.1) 04/08/18 04:02 - Impressions Impressions Head CT 04/07/18 23:06 IMPRESSION: No acute intracranial abnormalities identified to explain the patient's seizure activity. Consider further evaluation with MRI. D/ / Nitesh Snow MD / Nitesh Snow MD Interpreting Provider: Nitesh Snow MD Consult Discharge Plan - Plan Referrals: Khris Miller MD [Primary Care Provider] - 04/13/18 1:50 pm
[2018-04-09 04:42] LABS: Basophils # 0.1 K/mcL (0.0-0.2); Basophils % 0.8 %; Eosinophils # 0.3 K/mcL (0.0-0.6); Eosinophils % 5.4 %; Hematocrit 39.2 % (35.3-44.9); Hemoglobin 13.3 g/dL (11.5-15.4); Immature Granulocytes % 0.3 % (0-4); Lymphocytes % 49.3 %; Mean Corpuscular HGB Conc 33.9 g/dL (31.6-35.5); Mean Corpuscular Hemoglobin 30.4 pg (28.0-33.3); Mean Corpuscular Volume 89.7 fL (83.0-100.0); Mean Platelet Volume 11.2 fL (9.4-12.4); Monocytes # 0.6 K/mcL (0.0-1.3); Monocytes % 10.3 %; Neutrophils # 2.1 K/mcL (1.6-8.9); Platelet Count 215 K/mcL (140-400); Red Blood Count 4.37 M/mcL (3.82-4.97); Red Cell Distribution Width 11.9 % (11.5-14.5); Segmented Neutrophils % 33.9 %
[2018-04-09 04:57] LABS: BUN/Creatinine Ratio 12 (6-26); Blood Urea Nitrogen 12 mg/dL (6-20); Calcium 8.8 mg/dL (8.6-10.3); Carbon Dioxide 23 mEq/L (23-29); Chloride 110 mEq/L (98-107); Glucose 97 mg/dL (70-105); Osmolality,Calculated 292 (280-300); Sodium 141 mEq/L (136-145); eGFR For African Americans > 60 (> 60); eGFR For Non-African Americans > 60 (> 60)
[2018-04-09] MEDS: *HR* Heparin 5,000 UNIT/ML VIAL SQ SCH (06:10)
[2018-04-09 07:16] VITALS: BP 124/88
[2018-04-09] MEDS: Divalproex (12 HR) 500 MG TABLET PO SCH (07:25)
[2018-04-09] MEDS ORDERED: Acetaminophen 325 MG TABLET PO ONE (09:54)
--- NOTE | 2018-04-09 10:20 | Discharge Summary ---
- NOTES TO OUTPATIENT PROVIDER Notes to Outpatient Provider: Pt was admitted for seizures. Depakote was restarted, continue Lyrica. Pt is stable and seizure free prior to discharge. Date of Encounter: 04/09/18 Time of Encounter: 09:25 - Discharge Diagnosis (1) Seizure Priority: Primary Status: Acute Assessment and Plan: Depakote 500mg po BID, continue Lyrica. Pt is more alert today. States that she feels well enough to go home. She has remained seizure free since arrival to ED. (2) Hypertension Priority: Secondary Status: Chronic Assessment and Plan: Blood pressure is well controlled. Medications were held due to hypotension. Restart medications in response to blood pressures, discussed parameters with mother. Qualifiers: Hypertension type: essential hypertension Qualified Code(s): I10 - Essential (primary) hypertension (3) DVT prophylaxis Priority: Secondary Status: Acute Assessment and Plan: Heparin SQ BID. Hospital course: Ms. Pepe is a 32 year old female with PMH of seizures, fibromyalgia, chronic back pain, and HTN. Pt was admitted for seizures. She had not been on Depakote since she was incarcerated. Depakote was restarted and pt has been seizure free. She will continue her other home meds in addition to Depakote 500mg po BID. Pt will need to follow up with neurology and PCP for medication refills and adjustments. Vitals and labs are stable and WNL. She is stable and appropriate for discharge with her mother. Discharge discussed with: patient, family - Time Spent with Patient Total time spent providing and/or coordinating discharge services: - Discharge Medications Prescriptions: Divalproex (12 HR) [Depakote (12 HR)] 500 mg PO BID #60 tablet.dr Holloway Medications: DULoxetine [Cymbalta] 20 mg PO DAILY 04/07/18 [History] Diltiazem CD (24hr) [Cardizem CD] 120 mg PO DAILY 04/07/18 [History] Estrogens, Conjugated [Premarin] 0.45 mg PO DAILY 04/07/18 [History] Ibuprofen [Motrin] 800 mg PO Q8HR 04/07/18 [History] Lisinopril [Zestril] 10 mg PO DAILY 04/07/18 [History] Medroxyprogesterone Acetate [Provera] 50 mg PO DAILY 04/07/18 [History] Pregabalin [Lyrica] 100 mg PO BID 04/07/18 [History] Ondansetron HCl [Zofran] 4 mg PO Q8HR PRN 04/08/18 [History] Divalproex (12 HR) [Depakote (12 HR)] 500 mg PO BID #60 tablet. 04/09/18 [Rx] Allergies/Adverse Reactions: 3 Allergy/AdvReac Type Severity Reaction Status Date / Time levofloxacin [From Levaquin] Allergy Hives Verified 03/29/18 21:44 methocarbamol Allergy Difficulty Verified 03/29/18 21:44 Breathing tramadol Allergy Seizure Verified 03/29/18 21:44 Date of admission: 04/07/18 23:02 Primary care physician: Khris Miller MD Consults: 04/08/18 00:05 Consult to Physician [CONS] Routine Consulting Provider: Brissa Love I Reason for Consult: seizure Call Completed: No 04/08/18 09:28 Consult to Interpret Exam [CONS] Routine Consulting Provider: Brissa Love I Consult to Interpret Exam: Interpret EEG Discharging clinician: Lili Rudolph Anticipated date of discharge: 04/09/18 - Constitutional Vitals: Temp Pulse Resp BP Pulse Ox 98.4 F 64 16 124/88 98 04/09/18 07:14 04/09/18 07:14 04/09/18 07:14 04/09/18 07:14 04/09/18 07:14 General appearance: Present: cooperative, pleasant, no acute distress, answers questions appropriately - Head Head exam: Present: atraumatic, normal inspection, normocephalic - Eye Eye exam: Present: normal appearance, conjuntiva pink, sclera anicteric - Neck Neck exam general surgery: Present: supple, trachea midline. Absent: lymphadenopathy, tenderness - Respiratory Respiratory exam: Present: CTAB. Absent: accessory muscle use, rales, rhonchi, wheezes - Cardiovascular Cardiovascular exam: Present: RRR, +S1, +S2. Absent: diastolic murmur, gallop, rubs, systolic murmur - GI/Abdominal GI/Abdominal exam: Present: normal bowel sounds, soft. Absent: distended, hepatomegaly, tenderness - Extremities Exam Extremities exam: Present: normal capillary refill, normal inspection, warm, radial pulses palpable and symmetrical. Absent: calf tenderness, cyanotic, pedal edema, tenderness - Neurological Exam Neurological exam: Present: alert, oriented X3, no focal deficits. Absent: facial droop, speech deficit - Skin Skin exam: Present: dry, intact, normal color, warm. Absent: rash - Patient Status Disposition: Home, Self-Care Condition: Good Functional capacity at discharge: independent ambulation Overall status at discharge: patient is progressing back to baseline - Discharge Instructions Follow Up With: Khris Miller MD [Primary Care Provider] - 04/13/18 1:50 pm Additional Instructions: Please follow up with Dr. Miller as scheduled. Return to the ER as needed for any other problems or concerns, or if your symptoms return or worsen. Take your medications as directed. Bindu's blood pressure has been ok to restart her antihypertensives Return to your normal activities and diet as tolerated. - Diet and Activity Activity: increase activity as tolerated Diet: advance to your usual diet
--- NOTE | 2018-04-09 11:02 | Neurology Progress Note ---
Date of Encounter: 04/09/18 Time of Encounter: 07:35 Assessment and Plan (1) Partial symptomatic epilepsy with complex partial seizures, not intractable , without status epilepticus Current Visit: Yes Status: Chronic Clinically stable okay to discharge from neurology standpoint continue on Lyrica and Depakote 500 mg twice a day She should remain on seizure precautions follow-up in the neurology clinic in 3- 4 weeks Subjective Interval history: stable alert awake no focal deficit no further seizures able to tolerated Depakote well Objective - Constitutional Vitals: Temp Pulse Resp BP Pulse Ox 98.4 F 64 16 124/88 98 04/09/18 07:14 04/09/18 07:14 04/09/18 07:14 04/09/18 07:14 04/09/18 07:14 Results - Laboratory Findings CBC and BMP: 04/09/18 04:18 04/09/18 04:18 Abnormal lab findings: Abnormal lab results Nucleated RBCs/100 WBC 0.6 /100 WBC (0) H 04/08/18 04:20 APTT 25.0 Seconds (26.0-36.0) L 04/08/18 04:02 Chloride 110 mEq/L (98-107) H 04/09/18 04:18 POC Glucose 120 mg/dL (70-99) H 04/08/18 20:02 Total Bilirubin 0.2 mg/dL (0.3-1.0) L 04/08/18 04:20 Serum Total Protein 5.1 g/dL (6.4-8.9) L 04/08/18 04:20 Albumin 3.4 g/dL (3.5-5.7) L 04/08/18 04:20 Globulin 1.7 g/dL (2.4-3.5) L 04/08/18 04:20 Valproic Acid < 4 mcg/mL (50-100) L 04/07/18 19:48 - Diagnostic Findings Additional findings: No seizure activity on EEG Consult Discharge Plan - Plan Instructions: Epilepsy (DC), Women and Epilepsy (DC) Additional Instructions: Please follow up with Dr. Miller as scheduled. Return to the ER as needed for any other problems or concerns, or if your symptoms return or worsen. Take your medications as directed. Bindu's blood pressure has been ok to restart her antihypertensives Return to your normal activities and diet as tolerated. Referrals: Khris Miller MD [Primary Care Provider] - 04/13/18 1:50 pm Prescriptions: Divalproex (12 HR) [Depakote (12 HR)] 500 mg PO BID #60 tablet.
--- NOTE | 2018-04-09 11:54 | EEG/EMG/Oth Biometrics Report ---
EEG Procedure Report Date of procedure: 04/08/18 EEG Procedure: Routine EEG Procedure Note: Routine 21-channel digital EEG performed and recorded utilizing the standard international 10-20 electrode placement system. FINDINGS: This patient has predominant waking background rhythm which is well- organized, well-developed, average voltage 8 to 10 hertz alpha activity in the posterior regions, symmetrical over the both hemispheres reactive to eye opening and closing, and it is bilaterally synchronous. No [id number] discharges or any lateralizing abnormalities are seen. Photic stimulation and hyperventilation did not produce any convulsive response. No abnormalities were found during the procedure. Intermittent EMG artifacts were seen. Stage II sleep was not achieved. IMPRESSION: Normal awake/ drowsy electroencephalogram. No epileptiform discharges or any other paroxysmal activities or focal abnormalities seen. (Please note that normal EEG does not exclude the diagnosis of seizure or epilepsy, Clinical correlation is recommended.
== END 2018-04-09 11:48 | disposition home or self-care (01) ==
LOC: EMEROO 19:42 → 3BNU 19:42
PROVIDERS: ADMIT Pediatrics; ATTEND Pediatrics

== ENCOUNTER 2018-05-03 21:11 | Inpatient (IN) ==
[2018-05-03 22:34] LABS: Bilirubin,Urine Small (Negative); Blood,Urine Large (Negative); Clarity,Urine Clear (Clear); Color,Urine Dark Yellow (Yellow); Glucose,Urine (UA) Normal (Normal); Ketones,Urine Trace mg/dL (Negative); Leukocyte Esterase,Urine Small (Negative); Nitrite,Urine Negative (Negative); PH,Urine 5.5 pH Units (5.0-8.0); Protein,Urine 30 mg/dL (Neg-Trace); Urobilinogen,Urine Normal (Normal)
[2018-05-03 22:35] LABS: Basophils # 0.1 K/mcL (0.0-0.2); Basophils % 0.9 %; Eosinophils # 0.1 K/mcL (0.0-0.6); Eosinophils % 1.2 %; Hematocrit 44.1 % (35.3-44.9); Hemoglobin 15.6 g/dL (11.5-15.4); Immature Granulocytes % 0.3 % (0-4); Lymphocytes # 3.2 K/mcL (0.6-4.6); Mean Corpuscular HGB Conc 35.4 g/dL (31.6-35.5); Mean Corpuscular Hemoglobin 31.6 pg (28.0-33.3); Mean Corpuscular Volume 89.3 fL (83.0-100.0); Mean Platelet Volume 10.9 fL (9.4-12.4); Monocytes % 9.4 %; Neutrophils # 5.7 K/mcL (1.6-8.9); Platelet Count 254 K/mcL (140-400); Red Blood Count 4.94 M/mcL (3.82-4.97); Segmented Neutrophils % 56.2 %
[2018-05-03 22:36] LABS: Bacteria,Urine None Seen per hpf (None-Few); Hyaline Casts,Urine Few per lpf (None-Few); Squamous Epithelial Cell,Urine Many per lpf (None-Few)
[2018-05-03 22:44] LABS: Amphetamine Screen,Urine Positive ng/mL (Cutoff=1000); Barbiturate Screen,Urine Negative ng/mL (Cutoff=200); Benzodiazepines Screen,Urine Negative ng/mL (Cutoff=200); Cannabinoid Screen,Urine Negative ng/mL (Cutoff = 50); Cocaine Screen,Urine Negative ng/mL (Cutoff= 300); Opiate Screen,Urine Negative ng/mL (Cutoff=300); Phencyclidine Screen,Urine Negative ng/mL (Cutoff=25)
[2018-05-03 22:53] LABS: Acetaminophen < 10 mcg/mL (10-20); BUN/Creatinine Ratio 25 (6-26); Blood Urea Nitrogen 29 mg/dL (6-20); Calcium 9.9 mg/dL (8.6-10.3); Carbon Dioxide 21 mEq/L (23-29); Chloride 107 mEq/L (98-107); Ethanol < 10 mg/dL (Less than 10); Glucose 93 mg/dL (70-105); Osmolality,Calculated 298 (280-300); Potassium 3.6 mEq/L (3.5-5.1); Salicylate < 2.5 mg/dL (15.0-30.0); Sodium 141 mEq/L (136-145); eGFR For African Americans > 60 (> 60); eGFR For Non-African Americans 55 (> 60)
--- NOTE | 2018-05-03 23:04 | Emergency Department Note ---
Disposition Clinical Impression: Acute psychosis Disposition: Still a Patient Condition: Fair Referrals: NONE,PCP [Primary Care Provider] - Forms: ED Satisfaction Letter Psych HPI - General Chief Complaint: ED Psychiatric Symptoms Time Seen by Provider: 05/03/18 21:25 Source: patient, family, EMS Mode of arrival: ambulatory Limitations: no limitations Nursing Notes Reviewed: Yes Vital Signs Reviewed: Yes - History of Present Illness HPI Narrative: 32-year-old female presents emergency Department for psychiatric evaluation. Mother called EMS to bring the patient for further evaluation because of suicidal statements made within the past week. Patient was just evaluated by 1A last night for similar circumstances, she was found safe to return home. Today the patient was evicted from her apartment, she tried to run away from the mom with her 2 children. She hid from the mom has she tried to search for her. Mother is very concerned that the patient is not making sound decisions and believes that the children are in danger. Patient has not hurt her children. Mother states that there was no suicidal ideation statements today. Patient is denying suicidal ideation in the emergency department. Patient denies other fever, chills, nausea, vomiting, diarrhea. - Related Data Home Medications Medication Instructions Recorded Confirmed DULoxetine [Cymbalta] 20 mg PO DAILY 04/07/18 04/07/18 Diltiazem CD (24hr) [Cardizem CD] 120 mg PO DAILY 04/07/18 04/07/18 Estrogens, Conjugated [Premarin] 0.45 mg PO DAILY 04/07/18 04/07/18 Ibuprofen [Motrin] 800 mg PO Q8HR 04/07/18 04/07/18 Lisinopril [Zestril] 10 mg PO DAILY 04/07/18 04/07/18 Medroxyprogesterone Acetate 50 mg PO DAILY 04/07/18 04/07/18 [Provera] Pregabalin [Lyrica] 100 mg PO BID 04/07/18 04/07/18 Ondansetron HCl [Zofran] 4 mg PO Q8HR PRN 04/08/18 04/08/18 Previous Rx's Medication Instructions Recorded Divalproex (12 HR) [Depakote (12 500 mg PO BID #60 tablet. 04/09/18 HR)] Divalproex (12 HR) [Depakote (12 1,000 mg PO BID #12 tablet. 05/02/18 HR)] Allergies Allergy/AdvReac Type Severity Reaction Status Date / Time levofloxacin [From Levaquin] Allergy Hives Verified 05/03/18 21:44 methocarbamol Allergy Difficulty Verified 05/03/18 21:44 Breathing tramadol Allergy Seizure Verified 05/03/18 21:44 All systems ED: reviewed and negative except as stated. Review of Systems: As Per HPI Past Medical History - Past Medical History Attestation: Yes The following information was validated with the patient. Medical history: Reports: fibromyalgia, hypertension, seizures, other Surgical history: Reports: no surgical history Psychiatric history: Reports: anxiety, depression, other [employer] history: Reports: endometriosis - Social History Smoking Status: Current every day smoker Smokeless Tobacco Status: No Alcohol use: Reports: rarely Drug use: Reports: none Physical Exam General: Alert and in no acute distress Skin: Warm, dry, intact Head: Normocephalic and atraumatic Neck: Supple, trachea midline and no tenderness Cardiovascular: RRR, no murmur, normal perfusion Respiratory: CTAB, no wheezing, cough, or respiratory distress Musculoskeletal: Normal strength, no tenderness, swelling or deformity GI: Soft, nontender, nondistended. Bowel sounds present Neuro: A&O to person, place, time and situation. No focal deficits noted on exam - General Limitations: no limitations General appearance: alert, in no apparent distress Course Vital Signs Temperature 98.4 F 05/03/18 21:41 Pulse Rate 104 05/03/18 21:41 Respiratory Rate 20 05/03/18 21:41 Blood Pressure 119/85 05/03/18 21:41 O2 Sat by Pulse Oximetry 100 05/03/18 21:41 Temperature 98.4 F 05/03/18 22:03 Pulse Rate 104 05/03/18 22:03 Respiratory Rate 20 05/03/18 22:03 Blood Pressure 119/85 05/03/18 22:03 O2 Sat by Pulse Oximetry 100 05/03/18 22:03 Oxygen Delivery Oxygen Delivery Room Air Psych - MDM Narrative Medical decision making narrative: Patient will be medically cleared and evaluated by 1A. Patient was seen by behavioral health who felt that she was safe to return home. Prior to discharge the patient walked to the opening of the room and started speaking with her that was not there. Patient will be reevaluated by behavioral health and care was transferred to Dr. Salazar pending disposition. - Lab Data Result diagrams: 05/03/18 22:22 05/03/18 22:22 Lab Results 05/03/18 05/03/18 05/03/18 Range/Units 22:03 22:03 22:22 WBC 10.1 (4.3-11.1) K/mcL RBC 4.94 (3.82-4.97) M/mcL Hgb 15.6 H (11.5-15.4) g/dL Hct 44.1 (35.3-44.9) % MCV 89.3 (83.0-100.0) fL MCH 31.6 (28.0-33.3) pg MCHC 35.4 (31.6-35.5) g/dL RDW 12.0 (11.5-14.5) % Plt Count 254 (140-400) K/mcL MPV 10.9 (9.4-12.4) fL Immature Gran % 0.3 (0-4) % Seg Neutrophils % 56.2 % Lymphocytes % 32.0 % Monocytes % 9.4 % Eosinophils % 1.2 % Basophils % 0.9 % Neutrophils # 5.7 (1.6-8.9) K/mcL Lymphocytes # 3.2 (0.6-4.6) K/mcL Monocytes # 1.0 (0.0-1.3) K/mcL Eosinophils # 0.1 (0.0-0.6) K/mcL Basophils # 0.1 (0.0-0.2) K/mcL Sodium (136-145) mEq/L Potassium (3.5-5.1) mEq/L Chloride (98-107) mEq/L Carbon Dioxide (23-29) mEq/L BUN (6-20) mg/dL Creatinine (0.60-1.20) mg/dL Est GFR ( Amer) (> 60) Est GFR (Non-Af Amer) (> 60) BUN/Creatinine Ratio (6-26) Glucose (70-105) mg/dL Calculated Osmolality (280-300) Calcium (8.6-10.3) mg/dL Urine Color Dark Yellow (Yellow) Urine Clarity Clear (Clear) Urine pH 5.5 (5.0-8.0) pH Units Ur Specific [place] 1.030 H (1.010-1.025) Urine Protein 30 H (Neg-Trace) mg/dL Urine Glucose (UA) Normal (Normal) mg/dL Urine Ketones Trace H (Negative) mg/dL Urine Blood Large H (Negative) Urine Nitrite Negative (Negative) Urine Bilirubin Small H (Negative) Urine Urobilinogen Normal (Normal) mg/dL Ur Leukocyte Esterase Small H (Negative) Urine Microscopic RBC 3-5 H (0-3) per hpf Urine Microscopic WBC 5-15 H (0-3) per hpf Ur Squamous Epith Cells Many H (None-Few) per lpf Urine Bacteria None Seen (None-Few) per hpf Hyaline Casts Few (None-Few) per lpf Salicylates (15.0-30.0) mg/dL Urine Opiates Screen Negative (Tabqel=405) ng/mL Acetaminophen (10-20) mcg/mL Ur Barbiturates Screen Negative (Lopnxd=593) ng/mL Ur Phencyclidine Scrn Negative (Cutoff=25) ng/mL Ur Amphetamines Screen Positive H (Odjtfq=7328) ng/mL U Benzodiazepines Scrn Negative (Vwrzat=251) ng/mL Urine Cocaine Screen Negative (Cutoff= 300) ng/mL U Marijuana (THC) Screen Negative (Cutoff = 50) ng/mL Ethyl Alcohol (Less than 10) mg/dL 05/03/18 Range/Units 22:22 WBC (4.3-11.1) K/mcL RBC (3.82-4.97) M/mcL Hgb (11.5-15.4) g/dL Hct (35.3-44.9) % MCV (83.0-100.0) fL MCH (28.0-33.3) pg MCHC (31.6-35.5) g/dL RDW (11.5-14.5) % Plt Count (140-400) K/mcL MPV (9.4-12.4) fL Immature Gran % (0-4) % Seg Neutrophils % % Lymphocytes % % Monocytes % % Eosinophils % % Basophils % % Neutrophils # (1.6-8.9) K/mcL Lymphocytes # (0.6-4.6) K/mcL Monocytes # (0.0-1.3) K/mcL Eosinophils # (0.0-0.6) K/mcL Basophils # (0.0-0.2) K/mcL Sodium 141 (136-145) mEq/L Potassium 3.6 (3.5-5.1) mEq/L Chloride 107 (98-107) mEq/L Carbon Dioxide 21 L (23-29) mEq/L BUN 29 H (6-20) mg/dL Creatinine 1.15 (0.60-1.20) mg/dL Est GFR ( Amer) > 60 (> 60) Est GFR (Non-Af Amer) 55 L (> 60) BUN/Creatinine Ratio 25 (6-26) Glucose 93 (70-105) mg/dL Calculated Osmolality 298 (280-300) Calcium 9.9 (8.6-10.3) mg/dL Urine Color (Yellow) Urine Clarity (Clear) Urine pH (5.0-8.0) pH Units Ur Specific [place] (1.010-1.025) Urine Protein (Neg-Trace) mg/dL Urine Glucose (UA) (Normal) mg/dL Urine Ketones (Negative) mg/dL Urine Blood (Negative) Urine Nitrite (Negative) Urine Bilirubin (Negative) Urine Urobilinogen (Normal) mg/dL Ur Leukocyte Esterase (Negative) Urine Microscopic RBC (0-3) per hpf Urine Microscopic WBC (0-3) per hpf Ur Squamous Epith Cells (None-Few) per lpf Urine Bacteria (None-Few) per hpf Hyaline Casts (None-Few) per lpf Salicylates < 2.5 L (15.0-30.0) mg/dL Urine Opiates Screen (Jbsesp=687) ng/mL Acetaminophen < 10 L (10-20) mcg/mL Ur Barbiturates Screen (Coemrd=977) ng/mL Ur Phencyclidine Scrn (Cutoff=25) ng/mL Ur Amphetamines Screen (Zlafqd=0294) ng/mL U Benzodiazepines Scrn (Wtyiqm=913) ng/mL Urine Cocaine Screen (Cutoff= 300) ng/mL U Marijuana (THC) Screen (Cutoff = 50) ng/mL Ethyl Alcohol < 10 (Less than 10) mg/dL Psychiatric Medical Clearance - Medical Clearance Checklist Medical History: No Social History Section defined Current Vitals: Last Vital Signs Temp 98.4 F 05/03/18 22:03 Pulse 104 05/03/18 22:03 Resp 20 05/03/18 22:03 BP 119/85 05/03/18 22:03 Pulse Ox 100 05/03/18 22:03 Psychiatric Lab Panel: Drug Levels and Toxicity 05/03/18 05/03/18 22:03 22:22 Urine Opiates Screen Negative Acetaminophen < 10 L Ur Barbiturates Screen Negative Ur Phencyclidine Scrn Negative Ur Amphetamines Screen Positive H U Benzodiazepines Scrn Negative Urine Cocaine Screen Negative U Marijuana (THC) Screen Negative Ethyl Alcohol < 10 Abnormal Labs: Abnormal lab results Hgb 15.6 g/dL (11.5-15.4) H 05/03/18 22:22 Carbon Dioxide 21 mEq/L (23-29) L 05/03/18 22:22 BUN 29 mg/dL (6-20) H 05/03/18 22:22 Est GFR (Non-Af Amer) 55 (> 60) L 05/03/18 22:22 Ur Specific [place] 1.030 (1.010-1.025) H 05/03/18 22:03 Urine Protein 30 mg/dL (Neg-Trace) H 05/03/18 22:03 Urine Ketones Trace mg/dL (Negative) H 05/03/18 22:03 Urine Blood Large (Negative) H 05/03/18 22:03 Urine Bilirubin Small (Negative) H 05/03/18 22:03 Ur Leukocyte Esterase Small (Negative) H 05/03/18 22:03 Urine Microscopic RBC 3-5 per hpf (0-3) H 05/03/18 22:03 Urine Microscopic WBC 5-15 per hpf (0-3) H 05/03/18 22:03 Ur Squamous Epith Cells Many per lpf (None-Few) H 05/03/18 22:03 Salicylates < 2.5 mg/dL (15.0-30.0) L 05/03/18 22:22 Acetaminophen < 10 mcg/mL (10-20) L 05/03/18 22:22 Ur Amphetamines Screen Positive ng/mL (Ujrqye=4741) H 05/03/18 22:03 Statement of Medical Clearance: I have evaluated the patient, reviewed diagnostic information, and certify that the patient's medical condition is sufficiently stable that transfer to the psychiatric unit does not pose a significant risk of deterioration.
[2018-05-04] MEDS ORDERED: OLANZapine 5 MG TAB.RAPDIS PO ONE (00:54)
[2018-05-04] MEDS ORDERED: Haloperidol Lactate 5 MG/ML VIAL IM PRN (01:34)
[2018-05-04] MEDS ORDERED: traZODone 50 MG TABLET PO PRN (01:34)
[2018-05-04] MEDS ORDERED: Mag Hydrox/Al Hydrox/Simeth 30 ML UDC PO PRN (01:34)
[2018-05-04] MEDS ORDERED: MOM Conc 10 ML UD.LIQ PO PRN (01:34)
[2018-05-04] MEDS ORDERED: *HR* LORazepam 1 MG TABLET PO PRN (01:34)
[2018-05-04] MEDS ORDERED: Acetaminophen 325 MG TABLET PO PRN (01:34)
[2018-05-04] MEDS ORDERED: hydrOXYzine pamoate 25 MG CAPSULE PO PRN (01:34)
[2018-05-04] MEDS ORDERED: *HR* LORazepam 2 MG/ML VIAL IM PRN (01:34)
[2018-05-04] MEDS ORDERED: Nicotine 2 MG GUM BC PRN (02:20)
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
[2018-05-06 10:03] VITALS: BP 115/90
--- NOTE | 2018-05-06 10:03 | Discharge Summary ---
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 04/09/18 [Rx] 3 Allergy/AdvReac Type Severity Reaction Status Date / Time levofloxacin [From Levaquin] Allergy Hives Verified 05/03/18 21:44 methocarbamol Allergy Difficulty Verified 05/03/18 21:44 Breathing tramadol Allergy Seizure Verified 05/03/18 21:44 Provider Date of admission: 05/04/18 17:02 Primary care physician: PCP NONE Psychiatry Exam - Constitutional Vitals: Temp Pulse Resp BP Pulse Ox 99.1 F 66 16 103/62 100 05/05/18 19:54 05/05/18 19:54 05/05/18 19:54 05/05/18 19:54 05/03/18 22:03 General appearance: thin - Musculoskeletal Gait: normal Station: stooped Strength & Tone: normal for patient - Psychiatric Patient Orientation: Yes Person, Yes Time, Yes Place, Yes Circumstance Level of alertness: Alert Behavior: restless Psychomotor activity: Normal Eye Contact: Fleeting Contact Mood Description: Angry (mildly, better than previously) Affect description: congruent with mood Speech Volume: Normal Speech pattern: normal rate, normal rhythm, normal tone Language & Vocabulary: consistent with education Thought Process: Intact, Linear, Goal Oriented Thought Content: Yes Intact Attention Span Ability: Capable of Focused Attention, Capable of Sustained Attention Patient Reliability: Questionable Historian Fund of knowledge: Yes abstraction ability Intelligence Estimate: Average Judgment: Fair Insight: Partial Hospital Course Hospital course: Ms. Pepe is a 32 year old female Time spent discussing smoking cessation with patient: 3 to 10 minutes Does patient wish to continue nicotine replacement upon disc: No - Time Spent with Patient Total time spent providing and/or coordinating discharge services: 15 min Less than 30 minutes Assessment and Plan - Patient/Caregiver Discharge Instructions Activity: resume usual activities as tolerated Diet: regular diet - Follow up Plan Follow up with: [facility] [Other] - 05/07/18 9:00 am (The above appointment is for intake into suboxone treatment. Please bring your photo ID and insurance card to this appointment. You are also required to bring $10 for a bag and lock. Clinic requests that you come with a full stomach and prepared to provide a urine sample. You will be seen by a social media content manager, nurse, nurse practitioner and physician. The total appointment time will last between 2 and 4 hours.) [facility] [Outside] - 05/11/18 1:00 pm (The above appointment with [facility] is for psychiatry. Please bring medication list, insurance card and photo ID. Arrive 30 minutes before appointment; 1230PM. [facility] staff will be calling with an appointment for mental health counselling. Please give 24 hours notice for cancellation for any appointment you cannot keep.) Functional capacity at discharge: independent ambulation Overall status at discharge: Stable Disposition: Home, Self-Care Quality - Multiple Antipsychotics Patient discharged on 2 or more antipsychotic medications: No Procedures - Procedures Procedures: Crisis Stabilization, Supportive Therapy, Psychoeducational Therapy
== END 2018-05-06 10:55 | disposition home or self-care (01) | DRG 897 ==
LOC: EMEROO 21:11 → 1ANU 21:11
PROVIDERS: ADMIT Psychiatry & Neurology Psychiatry; ATTEND Psychiatry & Neurology Psychiatry